=== PATIENT | female | born 1980 | race Native Hawaiian/Other Pacific Islander ===

== ENCOUNTER 2017-08-08 11:50 | Emergency (ER) | payer SELFPAY ==
--- NOTE | 2017-08-08 13:12 | XRay Report ---
RIGHT ANKLE, 3 views: History: Right ankle pain. Findings: Mild soft tissue swelling is identified. No acute osseous abnormality or joint pathology is identified. The fifth metatarsal base is intact. Impression: Soft tissue swelling. No acute osseous injury.
--- NOTE | 2017-08-08 15:29 | Emergency Department Report ---
ED Lower Extremity HPI - General Chief Complaint: Extremity Injury, Lower Stated Complaint: RIGHT ANKLE PAIN Time Seen by Provider: 08/08/17 15:23 Source: patient Mode of arrival: Ambulatory Limitations: No Limitations - History of Present Illness Complaint: knee injury (B), ankle injury (R) -: week(s) (1) Injury: Knee: Right, Left, Ankle: Left Type of Injury: other (FALL) Place: home Severity: mild Improves With: nothing Worsens With: nothing Context: fall Associated Symptoms: swelling - Related Data Allergies Allergy/AdvReac Type Severity Reaction Status Date / Time Penicillins Allergy Angioedema Verified 08/08/17 12:18 ED Review of Systems ROS: Stated complaint: RIGHT ANKLE PAIN Other details as noted in HPI Comment: All other systems reviewed and negative Musculoskeletal: other (R ANKLE. B KNEE PAIN. L KNEE > R X 1 W HX. ) ED Past Medical Hx - Past Medical History Previous Medical History?: No - Surgical History Past Surgical History?: Yes Additional Surgical History: C/Sx2 - Family History Family history: no significant - Social History Smoking Status: Never Smoker Substance Use Type: None ED Physical Exam - General Limitations: No Limitations General appearance: alert - Head Head exam: Present: atraumatic - Eye Eye exam: Present: PERRL - ENT ENT exam: Present: mucous membranes moist - Neck Neck exam: Present: normal inspection - Respiratory Respiratory exam: Present: normal lung sounds bilaterally - Cardiovascular Cardiovascular Exam: Present: regular rate - GI/Abdominal GI/Abdominal exam: Present: soft - Rectal Rectal exam: Present: deferred - Extremities Exam Extremities exam: Present: other (R ANKLE MILD LAT SWELLING; B KNEE PAIN- NO SWELLING OR EFFUSION) - Back Exam Back exam: Present: normal inspection - Neurological Exam Neurological exam: Present: alert, oriented X3, CN II-XII intact - Psychiatric Psychiatric exam: Present: normal affect, normal mood - Skin Skin exam: Present: warm, dry ED Course Vital Signs 08/08/17 12:18 Temperature 98.8 F Pulse Rate 73 Respiratory 16 Rate Blood Pressure 122/64 O2 Sat by Pulse 100 Oximetry - Reevaluation(s) Reevaluation #1: 08/08/17 15:43 TO ER TODAY AFTER FALLING OVER A WEEK AGO SHE FELL ON [employer] HURTING B KNEES AND R ANKLE R KNEE SHE STATES FEELS BETTER L KNEE IS SORE BUT IS NOT HER SOURCE OF ER VISIT HER R ANKLE HAS BEEN PAINFUL AND SHE HAS PAIN W AMBULATION SHE HAS BEEN USING CRUTCHES MOST OF THE TIME AT HOME BUT NOT TO BE NON WEIGHT BEARING- SHE STATES SHE IS USING CRUTCHES ONLY TO HELP HER NOT FALL BC SHE IS USING A PEG LEG FOR HER L KNEE PAIN. THIS IS A DEVICE THAT SHE GOT ON [employer] THAT ALLOWS HER TO EXTEND HER L KNEE OVER ( A SHELF) AND THE DEVICE PROVIDES A FAKE DISTAL LEG. PT STATES SHE DOES THIS BC SHE IS AFRAID THE L KNEE WILL GIVE OUT AND SHE WILL HURT R ANKLE MORE. NKDA NO MEDS NO PMH SHE DOES NOT TAKE PAIN MEDS OR ANY MEDS BC THEY MAKE HER SICK WE HAD A LONG DISCUSSION ABOUT THE USE OF ASSIST. DEVICE/SPLINTS AND HOW THEY CAN CAUSE SECONDARY INJURY. R ANKLE MILD LAT SWELLING N/V INTACT GOOD PULSES XRAY NEG FOR FX L KNEE NO SWELLING, EFFUSION, OR BRUISING. NO LAXITY R KNEE NO SWELLING, EFFUSION OR BRUISING NO LAXITY EDUCATED PT THAT SHE IS GOING TO NEED TO SEE ORTHO FOR FURTHER EVAL OF THESE JOINTS IN MEAN TIME WE RECOMMEND R ANKLE LON AND NON WEIGHT BEARING. WITH PROPER USE OF CRUTCHES THIS WILL MINIMIZE RISK OF FALL AND FURTHER INJURY PT VERBALIZES UNDERSTANDING AND STATES SHE WILL SEE ORHTO THIS WEEK. ED Lower Extremity MDM - Radiology Data Radiology results: report reviewed, image reviewed - Medical Decision Making SEE NOTE - Differential Diagnosis RO FX ANKLE Critical care attestation.: If time is entered above; I have spent that time in minutes in the direct care of this critically ill patient, excluding procedure time. ED Disposition Clinical Impression: Ankle sprain, Knee contusion Disposition: TO HOME OR SELFCARE Is pt being admited?: No Does the pt Need Aspirin: No Condition: Stable Instructions: Ankle Sprain (ED), Knee Pain (ED) Additional Instructions: ICE REST ELEVATE ANKLE USE CRUTCHES MOTRIN OF PAIN XRAY IS NEGATIVE FOR FRACTURE TODAY YOU WILL NEED TO SEE ORTHO TO FURTHER EVAL YOUR KNEES AND ANKLE BE CAREFUL WITH YOUR CRUTCHES SO NOT TO FALL LON FOR SUPPORT TO ANKLE Referrals: PRIMARY MD BREANN [Primary Care Provider] - 3-5 Days AVINASH SANON MD [Staff Physician] - 3-5 Days Time of Disposition: 15:28
[2017-08-08 19:14] VITALS: BP 119/78
== END 2017-08-08 15:30 | disposition home or self-care (01) ==
LOC: ED 11:50
DX: S93.401A Sprain of unspecified ligament of right ankle, initial encounter (principal); S80.01XA Contusion of right knee, initial encounter; Z88.0 Allergy status to penicillin; W18.30XA Fall on same level, unspecified, initial encounter; Y93.89 Activity, other specified; Y92.89 Other specified places as the place of occurrence of the external cause; Y99.8 Other external cause status
CPT/HCPCS: 99284